=== PATIENT | female | born 1990 | race Caucasian/White ===

== ENCOUNTER 2018-01-16 01:17 | Inpatient (IN) | payer BC ==
[2018-01-16] VITALS (7 sets, daily range): BP systolic 93–141; BP diastolic 45–91
[~2018-01-16] VITALS: Ht 172.7 cm; Wt 68.0 kg
[~2018-01-16 01:17] MED LIST: ACETAMINOPHEN-1 EAC1 PO; BACTRIM DS TAB1 EACH PO; CIPRO500 MG PO; FLAGYL500 MG PO; HYDROCODON-ACE1 EAC7 PO; IBUPROFEN 800800 M1 PO; IBUPROFEN 800800 MG PO; KEFLEX500 MG PO; PHENERGAN12.5 M2 RECTAL; ZOFRAN4 MG PO
[2018-01-16 01:36] LABS: URINE BILIRUBIN NEGATIVE (Negative); URINE BLOOD TRACE (Negative); URINE CLARITY CLEAR; URINE COLOR YELLOW; URINE GLUCOSE-RANDOM NEGATIVE (Negative); URINE KETONES NEGATIVE (Negative); URINE LEUKOCYTES-REFLEX TRACE (Negative); URINE NITRITE-REFLEX NEGATIVE (Negative); URINE PROTEIN 1+ (Negative); URINE SPECIFIC GRAVITY <= 1.005 (1.005-1.030); URINE UROBILINOGEN 0.2 E.U./dl (0.2-1.0)
[2018-01-16 02:01] LABS: SQUAMOUS >10 Many /LPF (0-3)
[2018-01-16 02:02] LABS: CASTS None Seen /LPF (None Seen); URINE RBC 3-10 Few /HPF (0-2); URINE WBC-REFLEX 0-5 Rare /HPF (0-5)
[2018-01-16 02:03] LABS: BACTERIA-REFLEX 1-9 Few /HPF (None Seen); CRYSTALS None Seen /LPF (None Seen)
[2018-01-16 02:13] LABS: ABSOLUTE EOSINOPHILS 0.2 thou/uL (0.0-0.7); ABSOLUTE LYMPHOCYTES 2.6 thou/uL (0.8-5.3); ABSOLUTE MONOCYTES 1.2 thou/uL (0.0-1.2); ABSOLUTE NEUTROPHILS 7.5 thou/uL (1.6-8.1); BASOPHILS 0.2 %; EOSINOPHILS 1.3 %; HEMATOCRIT 45.8 % (37.0-47.0); HEMOGLOBIN 15.4 gm/dL (12.0-15.0); LYMPHOCYTES 22.5 %; MCH 29.8 pg (26.0-34.0); MCHC 33.5 g/dL (28.0-37.0); MCV 88.9 fL (80.0-100.0); MONOCYTES 10.4 %; MPV 9.8 fl. (7.2-11.1); NUCLEATED RBCS 0 /100WBC; PLATELET COUNT* 184 thou/uL (150-400); POLYS 65.6 %; RBC 5.16 mil/uL (4.20-5.00); RDW-CV 13.7 % (10.5-14.5); WBC 11.4 thou/uL (4.0-11.0)
[2018-01-16 02:24] LABS: CALCIUM 8.9 mg/dL (8.5-10.1); CREATININE 1.6 mg/dL (0.6-1.3); POTASSIUM 3.1 mmol/L (3.5-5.1)
[2018-01-16 02:29] LABS: ALBUMIN 3.7 g/dL (3.4-5.0); TOTAL BILIRUBIN 0.6 mg/dL (<0.1-1.0); TOTAL PROTEIN 7.5 g/dL (6.4-8.2)
[2018-01-16 07:46] LABS: MAGNESIUM 1.8 mg/dL (1.8-2.4); PHOSPHORUS* 4.3 mg/dL (2.5-4.9)
[2018-01-17 04:45] LABS: HEMATOCRIT 39.1 % (37.0-47.0); MCH 29.9 pg (26.0-34.0); MCHC 32.7 g/dL (28.0-37.0); MCV 91.6 fL (80.0-100.0); MPV 10.1 fl. (7.2-11.1); RBC 4.27 mil/uL (4.20-5.00); RDW-CV 13.6 % (10.5-14.5); WBC 5.5 thou/uL (4.0-11.0)
[2018-01-17 05:18] LABS: CALCIUM 8.3 mg/dL (8.5-10.1); CREATININE 1.1 mg/dL (0.6-1.3); HEMOGLOBIN 12.8 gm/dL (12.0-15.0); MAGNESIUM 1.8 mg/dL (1.8-2.4)
[2018-01-17 09:33] VITALS: BP 122/77
[2018-01-17 15:56] VITALS: BP 119/75
[2018-01-17 20:00] VITALS: BP 108/65
[2018-01-18 07:37] VITALS: BP 119/77
[2018-01-18] MEDS ORDERED: ACIDOPHILUS LA1 EAC1 PO (07:51)
[2018-01-18] MEDS ORDERED: LEVSIN0.125 MG PO (07:51)
[2018-01-18] MEDS ORDERED: CEFUROXIME500 MG PO (07:51)
[2018-01-18] MEDS ORDERED: NORCO 5-325 TA1 EACH PO (08:33)
[2018-01-18 08:42] VITALS: BP 119/77
== END 2018-01-18 09:15 | disposition home or self-care (01) | DRG 871 ==
LOC: M.ERS 01:17 → M.TBA-ER 04:29 → M.ORTHSURG 04:29
PROVIDERS: Emergency Medicine; Internal Medicine; ADMIT Internal Medicine
DX: A41.9 Sepsis, unspecified organism (principal); N17.0 Acute kidney failure with tubular necrosis; N12 Tubulo-interstitial nephritis, not specified as acute or chronic; F17.210 Nicotine dependence, cigarettes, uncomplicated; E87.6 Hypokalemia; E86.9 Volume depletion, unspecified; Z90.721 Acquired absence of ovaries, unilateral; Z88.0 Allergy status to penicillin

== ENCOUNTER 2020-09-25 01:57 | Emergency (ER) | payer OTHER ==
[~2020-09-25] VITALS: Ht 172.7 cm; Wt 74.8 kg
[~2020-09-25 01:57] MED LIST changes: +ACIDOPHILUS LA1 EAC1 PO; +CEFUROXIME500 MG PO; +LEVSIN0.125 MG PO; +NORCO 5-325 TA1 EACH PO
[2020-09-25 02:55] LABS: URINE BILIRUBIN NEGATIVE (Negative); URINE BLOOD NEGATIVE (Negative); URINE CLARITY CLEAR; URINE COLOR YELLOW; URINE GLUCOSE-RANDOM TRACE (Negative); URINE KETONES NEGATIVE (Negative); URINE NITRITE-REFLEX NEGATIVE (Negative); URINE PROTEIN 1+ (Negative); URINE SPECIFIC GRAVITY 1.015 (1.005-1.030); URINE UROBILINOGEN 0.2 E.U./dl (0.2-1.0)
[2020-09-25 02:56] LABS: URINE LEUKOCYTES-REFLEX 2+ (Negative)
[2020-09-25 02:59] LABS: AMP/METHAMP POSITIVE (Negative); BARBITURATES Negative (Negative); BENZODIAZEPINES Negative (Negative); COCAINE Negative (Negative); METHADONE Negative (Negative); OPIATES Negative (Negative); PCP Negative (Negative); THC POSITIVE (Negative)
[2020-09-25 04:52] LABS: BACTERIA-REFLEX >30 Many /HPF (None Seen); MUCUS >6 Heavy strn/LPF (None Seen); SQUAMOUS 0-3 Few /LPF (0-3); URINE RBC 3-10 Few /HPF (0-2); URINE WBC-REFLEX 6-15 Few /HPF (0-5); WBC CLUMPS Few (None Seen)
[2020-09-25 04:53] LABS: COARSE GRANULAR CASTS 0-3 Few /LPF (None Seen); CRYSTALS None Seen /LPF (None Seen); FINE GRANULAR CASTS 0-3 Few /LPF (None Seen); HYALINE CASTS 0-3 Few /LPF (None Seen)
[2020-09-25 05:17] VITALS: BP 146/97
== END 2020-09-25 05:18 | disposition home or self-care (01) ==
LOC: M.ERS 01:57
PROVIDERS: Personal Emergency Response Attendant
DX: S06.0X0A Concussion without loss of consciousness, initial encounter (principal); S60.221A Contusion of right hand, initial encounter; F17.210 Nicotine dependence, cigarettes, uncomplicated; Z88.0 Allergy status to penicillin; Z98.51 Tubal ligation status; Z79.899 Other long term (current) drug therapy; Z90.721 Acquired absence of ovaries, unilateral; Y08.89XA Assault by other specified means, initial encounter; Y93.89 Activity, other specified; Y92.89 Other specified places as the place of occurrence of the external cause; Y99.8 Other external cause status